=== PATIENT | male | born 1940 | race Caucasian/White ===

== ENCOUNTER 2016-11-18 20:18 | Emergency (ER) | payer MEDICARE, BC ==
--- NOTE | 2016-11-18 21:28 | ER Document Report ---
ED Medical Screen (RME) - General Stated Complaint: LEFT HAND INJURY Mode of Arrival: Ambulatory Information source: Patient Notes: Patient hit left hand on his door injuring left hand. Patient with laceration to dorsal aspect of left hand. Hand ecchymotic and swollen. Tetanus immunizations currently up-to-date. I have greeted and performed a rapid initial assessment of this patient. A comprehensive ED assessment and evaluation of the patient, analysis of test results and completion of the medical decision making process will be conducted by additional ED providers. TRAVEL OUTSIDE OF THE [place] IN LAST 30 DAYS: No - Related Data Allergies/Adverse Reactions: No Known Allergies Allergy (Verified 11/18/16 21:26) Past Medical History - Past Medical History Cardiac Medical History: Reports: Hx Hypertension, Hx Heart Murmur GI Medical History: Reports: Hx Gastroesophageal Reflux Disease Musculoskeltal Medical History: Reports Hx Arthritis Past Surgical History: Reports: Hx Open Heart Surgery - aortic valve replacement. Denies: Hx Pacemaker - Immunizations Hx Diphtheria, Pertussis, Tetanus Vaccination: Yes Physical Exam - Vital signs Vitals: Temp Pulse Resp BP Pulse Ox 97.9 F 66 18 139/55 H 97 11/18/16 21:08 11/18/16 21:08 11/18/16 21:08 11/18/16 21:08 11/18/16 21:08 - Skin Skin irregularity: Laceration - Dorsal aspect of left hand Course - Vital Signs Vital signs: Temp Pulse Resp BP Pulse Ox 97.9 F 66 18 139/55 H 97 11/18/16 21:08 11/18/16 21:08 11/18/16 21:08 11/18/16 21:08 11/18/16 21:08
--- NOTE | 2016-11-18 23:32 | ER Document Report ---
HPI - HPI Patient complains to provider of: left hand laceration Pain Level: 3 Context: Patient is a 76-year-old male that comes emergency department for chief complaint of an injury to the top of his left hand, he states he accidentally hit his hand on a doorknob. He states that he noticed some bleeding from a wound on the hand and he also had significant swelling underneath the wound. Patient is on Plavix. Patient reports he is up-to-date on his tetanus within 5 years. He denies any other injuries. He states that he placed a Band-Aid over the area and elevated his hand, states the swelling has resolved. - REPRODUCTIVE Reproductive: DENIES: : - DERM Skin Color: Normal Past Medical History - General Information source: Patient - Social History Smoking Status: Never Smoker Frequency of alcohol use: None Drug Abuse: None Lives with: Family Family History: Reviewed & Not Pertinent - Past Medical History Cardiac Medical History: Reports: Hx Hypertension, Hx Heart Murmur Renal/ Medical History: Denies: Hx Peritoneal Dialysis GI Medical History: Reports: Hx Gastroesophageal Reflux Disease Musculoskeltal Medical History: Reports Hx Arthritis Past Surgical History: Reports: Hx Open Heart Surgery - aortic valve replacement. Denies: Hx Pacemaker - Immunizations Hx Diphtheria, Pertussis, Tetanus Vaccination: Yes Vertical Provider Document - CONSTITUTIONAL General Appearance: WD/WN, No Apparent Distress - INFECTION CONTROL TRAVEL OUTSIDE OF THE [place] IN LAST 30 DAYS: No - HEENT HEENT: Atraumatic, Normocephalic - RESPIRATORY Respiratory: Breath Sounds Normal, No Respiratory Distress O2 Sat by Pulse Oximetry: 97 - CARDIOVASCULAR Cardiovascular: Regular Rate, Regular Rhythm. negative: No Murmur - 1/6 systolic murmur heard throughout - GI/ABDOMEN Gastrointestinal: Abdomen Soft, Abdomen Non-Tender - BACK Back: Normal Inspection - MUSCULOSKELETAL/EXTREMETIES Musculoskeletal/Extremeties: MAEW, FROM, Tender - There is ecchymosis and mild swelling over the dorsal aspect of the left hand over the second third and fourth MCP digits, there is a small skin tear over this area, full range of motion of the wrist, normal capillary refill and sensation, normal forearm exam. - NEURO Level of Consciousness: Awake, Alert, Appropriate Course - Re-evaluation Re-evalutation: X-ray reviewed and shows no fracture, patient has a small skin tear, this was cleaned and dressed, patient's swelling reportedly went significantly down per patient already, patient is on Plavix, this is most likely why he had the swelling. Discussed wound care follow-up, return precautions, patient states understanding and agreement. - Vital Signs Vital signs: Temp Pulse Resp BP Pulse Ox 97.9 F 66 18 139/55 H 97 11/18/16 21:08 11/18/16 21:08 11/18/16 21:08 11/18/16 21:08 11/18/16 21:08 Discharge - Discharge Clinical Impression: Skin tear Hand injury Qualifiers: Encounter type: initial encounter Laterality: left Qualified Code(s): S69.92XA - Unspecified injury of left wrist, hand and finger(s), initial encounter Hand swelling Qualifiers: Laterality: left Qualified Code(s): M79.89 - Other specified soft tissue disorders Condition: Stable Disposition: HOME, SELF-CARE Additional Instructions: You have been evaluated tonight for an accidental injury to the top of the left hand after striking the hand on a door knob. The x-ray of the hand shows no fracture or other abnormality. Examination is consistent with a skin tear and mild soft tissue swelling, soft tissue swelling is most likely because you are on Plavix. Keep an antibiotic dressing over the site, clean gently with soap and water, dab dry, avoid soaking until healed. Follow-up with your primary care. Return to emergency department for any concerning symptoms including signs of infection such as redness, abnormal heat to the area, fever, discolored drainage , etc. Referrals: PRANAV LE MD [Primary Care Provider] - Follow up as needed
[2016-11-18 23:45] VITALS: BP 136/59
== END 2016-11-18 23:44 | disposition home or self-care (01) ==
LOC: ER 20:18
DX: S61.412A Laceration without foreign body of left hand, initial encounter (principal); W22.8XXA Striking against or struck by other objects, initial encounter; Y92.009 Unspecified place in unspecified non-institutional (private) residence as the place of occurrence of the external cause; I10 Essential (primary) hypertension; Z95.2 Presence of prosthetic heart valve; Z79.02 Long term (current) use of antithrombotics/antiplatelets
CPT/HCPCS: 99283

== ENCOUNTER 2017-12-24 14:02 | Emergency (ER) | payer MEDICARE, BC ==
--- NOTE | 2017-12-24 15:09 | ER Document Report ---
ED Respiratory Problem - General Chief Complaint: Cough Stated Complaint: COUGH Time Seen by Provider: 12/24/17 14:58 Mode of Arrival: Ambulatory Information source: Patient, Relative, [facility] Records Notes: This 77-year-old male patient comes emergency room for a yellow productive cough. He started with upper respiratory tract infections mostly sinus 2 days ago. The cough started last night and was worse this morning. 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 There is been no fever. He states the cough now is becoming more of a dry cough. He takes baby aspirin, no other antiplatelet medication or anticoagulants. TRAVEL OUTSIDE OF THE [place] IN LAST 30 DAYS: No - Related Data Allergies/Adverse Reactions: No Known Allergies Allergy (Verified 11/18/16 21:26) Past Medical History - General Information source: Patient, Relative, [facility] Records - Social History Smoking Status: Former Smoker Cigarette use (# per day): No Chew tobacco use (# tins/day): No Smoking Education Provided: No Frequency of alcohol use: Rare Drug Abuse: None Occupation: Retired Lives with: Spouse/Significant other Family History: Reviewed & Not Pertinent Patient has suicidal ideation: No Patient has homicidal ideation: No - Past Medical History Cardiac Medical History: Reports: Hx Hypertension, Hx Heart Murmur Pulmonary Medical History: Reports: None EENT Medical History: Reports: None Neurological Medical History: Reports: Other - TIA Renal/ Medical History: Reports: None. Denies: Hx Peritoneal Dialysis GI Medical History: Reports: Hx Gastroesophageal Reflux Disease Musculoskeltal Medical History: Reports Hx Arthritis Psychiatric Medical History: Reports: None Past Surgical History: Reports: Hx Open Heart Surgery - aortic valve replacement - Immunizations Hx Diphtheria, Pertussis, Tetanus Vaccination: Yes Review of Systems - Review of Systems Constitutional: No symptoms reported EENT: Sinus discharge Cardiovascular: No symptoms reported Respiratory: Cough, Sputum Gastrointestinal: No symptoms reported Genitourinary: No symptoms reported Musculoskeletal: No symptoms reported Skin: No symptoms reported Hematologic/Lymphatic: No symptoms reported Neurological/Psychological: No symptoms reported Physical Exam - Vital signs Vitals: Temp Pulse Resp BP Pulse Ox 98.7 F 80 20 139/55 H 95 12/24/17 14:09 12/24/17 14:09 12/24/17 14:12/24/17 14:09 12/24/17 14:09 Interpretation: Normal - General General appearance: Appears well, Alert In distress: None - HEENT Head: Normocephalic, Atraumatic Eyes: Normal Pupils: PERRL Sinus: Other - Some nasal and sinus congestion Neck: Normal - Respiratory Respiratory status: No respiratory distress Breath sounds: Productive cough, Rhonchi - Cardiovascular Rhythm: Regular Heart sounds: Normal auscultation Murmur: No - Abdominal Inspection: Normal - Back Back: Normal - Extremities General upper extremity: Normal inspection General lower extremity: Normal inspection - Neurological Neuro grossly intact: Yes - Psychological Associated symptoms: Normal affect, Normal mood - Skin Skin Temperature: Warm Skin Moisture: Dry Skin Color: Normal Course - Vital Signs Vital signs: Temp Pulse Resp BP Pulse Ox 98.7 F 80 20 139/55 H 95 12/24/17 14:09 12/24/17 14:09 12/24/17 14:09 12/24/17 14:09 12/24/17 14:09 - Laboratory Result Diagrams: 12/24/17 15:49 12/24/17 15:49 Laboratory results interpreted by me: 12/24/17 12/24/17 15:49 15:49 RBC 4.08 L Hgb 13.2 L Sodium 135.9 L Chloride 96 L Carbon Dioxide 34 H - Diagnostic Test Radiology reviewed: Image reviewed, Reports reviewed - Chest x-ray does not show infiltrate or disease process Discharge - Discharge Clinical Impression: Bronchitis, Aortic valve replaced Condition: Stable Disposition: HOME, SELF-CARE Additional Instructions: Bronchitis You have acute bronchitis. This disease is an infection or inflammation of the air passageways in your lungs. Symptoms usually include cough, low grade fever, shortness of breath, and wheezing. The cough usually persists for a couple of weeks. Most cases of bronchitis get better without antibiotics. We prescribe antibiotics when we believe bacteria are damaging your airways, or if there's high risk the bronchitis will worsen into pneumonia. Increase your fluid intake. A cool mist humidifier may make your lungs more comfortable. An expectorant (cough medicine that loosens phlegm) can help. If you smoke, STOP!!! Recovery from bronchitis can be somewhat slow, but you should see improvement within a day or two. Repeated episodes of bronchitis may result in lung damage -- for example, chronic bronchitis, recurrent pneumonias, or emphysema. Call the doctor if you develop increasing fever, shortness of breath, chest pain, bloody sputum, or otherwise worsen. If you have not improved at all after several days, contact the physician. Take medication as prescribed. Plenty of fluids. Try Robitussin-DM to help suppress cough and loosen the mucus. Get plenty of rest and sleep. Follow-up with Dr. Morgan if not improving over the next few days. RETURN TO THE EMERGENCY ROOM IF ANY NEW OR WORSENING SYMPTOMS. Prescriptions: Doxycycline Hyclate 100 mg PO BID #14 tablet Referrals: PRANAV LE MD [EMER[facility]] - Follow up as needed
--- NOTE | 2017-12-24 15:41 | RADIOLOGY REPORT (SQ) ---
EXAM DESCRIPTION: CHEST PA/LAT COMPLETED DATE/TIME: 12/24/2017 3:22 pm REASON FOR STUDY: yellow productive cough COMPARISON: None. EXAM PARAMETERS: NUMBER OF VIEWS: two views TECHNIQUE: Digital Frontal and Lateral radiographic views of the chest acquired. RADIATION DOSE: NA LIMITATIONS: none FINDINGS: LUNGS AND PLEURA: No acute infiltrates or effusions. MEDIASTINUM AND HILAR STRUCTURES: No masses or contour abnormalities. HEART AND VASCULAR STRUCTURES: The heart is normal in size with aortic atherosclerosis. Median howard otomy wires aortic valve prosthesis noted. BONES: Dorsal spondylosis seen. HARDWARE: None in the chest. OTHER: No other significant finding. IMPRESSION: Status post aortic valve prosthesis and median sternotomy. No acute disease. TECHNICAL DOCUMENTATION: JOB ID: [id number] 2010 [employer]- All Rights Reserved Reading location - IP/workstation name: [email or web address]
[2017-12-24 16:19] LABS: ABSOLUTE EOSINOPHILS # (AUTO) 0.3 10^3/uL (0.0-0.6); ABSOLUTE LYMPHOCYTES (AUTO) 1.5 10^3/uL (0.5-4.7); ABSOLUTE MONOCYTES (AUTO) 0.7 10^3/uL (0.1-1.4); ABSOLUTE NEUT (AUTO) 7.9 10^3/uL (1.7-8.2); BASOPHILS % (AUTO) 0.2 % (0-2); EOSINOPHILS % (AUTO) 2.5 % (0-6); HEMATOCRIT 38.6 % (37.9-51.0); HEMOGLOBIN 13.2 g/dL (13.5-17.0); LYMPHOCYTES % (AUTO) 14.1 % (13-45); MEAN CORPUSCULAR HEMOGLOBIN 32.4 pg (27.0-33.4); MEAN CORPUSCULAR HGB CONC 34.3 g/dL (32.0-36.0); MEAN CORPUSCULAR VOLUME 95 fl (80-97); MONOCYTES % (AUTO) 7.1 % (3-13); PLATELET COUNT 219 10^3/uL (150-450); RED BLOOD COUNT 4.08 10^6/uL (4.35-5.55); RED CELL DISTRIBUTION WIDTH 13.5 % (11.5-14.0); SEGMENTED NEUTROPHILS % (AUTO) 76.1 % (42-78); TOTAL CELLS COUNTED % (AUTO) 100 %; WHITE BLOOD COUNT 10.4 10^3/uL (4.0-10.5)
[2017-12-24 16:35] LABS: ALANINE AMINOTRANSFERASE 67 U/L (21-72); ALBUMIN 4.6 g/dL (3.5-5.0); ALKALINE PHOSPHATASE 102 U/L (38-126); ANION GAP 6 (5-19); ASPARTATE AMINO TRANSFERASE 49 U/L (17-59); BILIRUBIN,DIRECT 0.1 mg/dL (0.0-0.4); BILIRUBIN,TOTAL 0.5 mg/dL (0.2-1.3); BLOOD UREA NITROGEN 15 mg/dL (7-20); CALCIUM 9.6 mg/dL (8.4-10.2); CARBON DIOXIDE 34 mmol/L (22-30); CHLORIDE 96 mmol/L (98-107); GLUCOSE 92 mg/dL (75-110); POTASSIUM 4.9 mmol/L (3.6-5.0); SODIUM 135.9 mmol/L (137-145); TOTAL PROTEIN 6.5 g/dL (6.3-8.2)
[2017-12-24 16:56] VITALS: BP 152/55
== END 2017-12-24 17:03 | disposition home or self-care (01) ==
LOC: ER 14:02
DX: J40 Bronchitis, not specified as acute or chronic (principal); I10 Essential (primary) hypertension; Z95.2 Presence of prosthetic heart valve; Z87.891 Personal history of nicotine dependence
CPT/HCPCS: 36415; 71046; 80053; 85025; 87040; 99284